=== PATIENT | female | born 1985 | race Caucasian/White ===

== ENCOUNTER 2018-05-14 06:01 | Day surgery (SDC) | payer SELFPAY ==
[~2018-05-14] VITALS: Ht 175.3 cm; Wt 87.9 kg
[2018-05-14] MEDS ORDERED: XANAX 0.5MG0.5 MG PO (06:25)
[2018-05-14] MEDS ORDERED: CELEXA40 MG PO (06:26)
[2018-05-14] MEDS ORDERED: ZOFRAN 4MG T4 MG/TAB PO (06:26)
[2018-05-14] MEDS ORDERED: WELLBUTRIN SR150 M1 PO (06:27)
[2018-05-14] MEDS ORDERED: ULTRAM 50MG TAB50 MG PO (06:27)
[2018-05-14] MEDS ORDERED: COZAAR 50MG50 MG/TAB PO (06:27)
[2018-05-14 06:28] VITALS: BP 109/89; PULSE 89; TEMP 99
[2018-05-14] MEDS ORDERED: FLEXERIL 1010 MG/TAB PO (06:28)
[2018-05-14 07:45] VITALS: BP 105/66; PULSE 76; TEMP 98.8
[2018-05-14 08:00] VITALS: BP 104/71; PULSE 87
[2018-05-14] MEDS ORDERED: ANUSOL HC CREAM30 GM TP (08:05)
[2018-05-14] MEDS ORDERED: PRILOTC PO (08:05)
[2018-05-14] MEDS ORDERED: PREPH RC (08:06)
[2018-05-14 14:57] VITALS: BP 106/53; PULSE 91
== END 2018-05-14 08:40 | disposition home or self-care (01) ==
LOC: SDCO 06:01
DX: K64.0 First degree hemorrhoids (principal); K92.1 Melena; R11.2 Nausea with vomiting, unspecified; R53.83 Other fatigue; R19.7 Diarrhea, unspecified; Z88.5 Allergy status to narcotic agent; Z88.8 Allergy status to other drugs, medicaments and biological substances; K59.00 Constipation, unspecified; D50.9 Iron deficiency anemia, unspecified; F17.200 Nicotine dependence, unspecified, uncomplicated
CPT/HCPCS: J2250; J3010; J7030

== ENCOUNTER → 2018-07-19 | Outpatient (CLI) | payer SELFPAY ==
[~2018-07-19] MED LIST: ANUSOL HC CREAM30 GM TP; CELEXA40 MG PO; COZAAR 50MG50 MG/TAB PO; FLEXERIL 1010 MG/TAB PO; PREPH RC; PRILOTC PO; ULTRAM 50MG TAB50 MG PO; WELLBUTRIN SR150 M1 PO; XANAX 0.5MG0.5 MG PO; ZOFRAN 4MG T4 MG/TAB PO
== END ==
LOC: COL.RAD 09:45
DX: R10.9 Unspecified abdominal pain (principal); R11.2 Nausea with vomiting, unspecified